=== PATIENT | male | born 1940 | race Caucasian/White ===

== ENCOUNTER 2017-06-03 20:16 | Emergency (ER) | payer MEDICARE, OTHER ==
[~2017-06-03] VITALS: Ht 175.3 cm; Wt 61.2 kg
[~2017-06-03 20:16] MED LIST: ASPI81CH PO; Aspirin EC81 MG PO; BISA5EC PO; CYAN1000 PO; Colace100 MG PO; EXELON1 EACH TD; FURO40 PO; HYDR1TAB94 PO; IRON SC; LEVCAR2510 PO; LEVCAR25ER PO; LISI20 PO; Metoprolol Tart25 MG PO; Niaspan1000 MG PO; Norco 10-325 T1 EACH PO; OMEG1CAP30; PANT40 PO; PHYSICIANS1000 MCG/1 IJ; POTCHL20ER PO; Pravachol40 MG PO; Sudogest60 MG PO; VICODIN 5-3001 EACH PO; VITAMIN B122500 MC1 PO
[2017-06-03 21:40] LABS: BASOPHILS ABSOLUTE AUTO 0.04 K/mm3 (0.00-0.23); BASOPHILS PERCENT AUTO 1 % (0-2); EOSINOPHILS ABSOLUTE AUTO 0.13 K/mm3 (0.00-0.68); EOSINOPHILS PERCENT AUTO 2 % (0-6); Hematocrit 36.9 % (37.0-53.0); Hemoglobin 12.2 g/dL (13.5-17.5); IMMATURE GRAN ABSOLUTE AUTO 0.02 K/mm3 (0.00-0.10); IMMATURE GRAN PERCENT AUTO 0 % (0-1); LYMPHOCYTES ABSOLUTE AUTO 3.06 K/mm3 (0.84-5.20); LYMPHOCYTES PERCENT AUTO 38 % (21-46); MONOCYTES PERCENT AUTO 8 % (4-13); Mean Corpuscular HGB 30.3 pg (26.0-34.0); Mean Corpuscular HGB Conc 33.1 g/dL (31.5-36.5); Mean Corpuscular Volume 92 fL (80-100); NEUTROPHILS PERCENT AUTO 52 % (41-73); RDW Coefficient Variation 12.1 % (11.7-14.2); RDW Standard Deviation 40.9 fL (35.1-46.3); Red Blood Cell Count 4.03 M/mm3 (4.30-5.90); White Blood Cell Count 8.05 K/mm3 (4.00-11.30)
[2017-06-03 21:54] LABS: Anion Gap 9 mmol/L (6-16); Blood Urea Nitrogen 24 mg/dL (8-24); Bun/Creatinine Ratio 23.1 (12.0-20.0); CO2, Blood 25 mmol/L (21-32); Calcium, Blood 8.3 mg/dL (8.5-10.1); Chloride, Blood 106 mmol/L (98-108); Creatinine, Blood 1.04 mg/dL (0.60-1.20); Glomerular Filtration Rate >60 (60-); Glucose, Blood 93 mg/dL (70-99); Potassium, Blood 3.9 mmol/L (3.5-5.5); Sodium, Blood 140 mmol/L (136-145)
[2017-06-03 22:16] LABS: Mean Platelet Volume 10.8 fL (9.1-12.4)
[2017-06-03 22:17] LABS: Platelet Count 152 K/mm3 (150-400)
[2017-10-12] MEDS ORDERED: POTCHL20ER PO (14:30)
[2017-10-19] MEDS ORDERED: Flagyl500 MG PO (14:31)
[2017-10-19] MEDS ORDERED: LOPE2C PO (14:31)
[2017-10-19] MEDS ORDERED: ASPI81CH PO (16:45)
[2017-10-31] MEDS ORDERED: ACET325 PO (12:11)
[2017-10-31] MEDS ORDERED: Carbidopa-Levo1 EAC1 PO ×2 (12:13→12:28)
[2017-10-31] MEDS ORDERED: Acidophilus La100 GM PO (12:14)
[2017-10-31] MEDS ORDERED: LISI20 PO (12:14)
[2017-10-31] MEDS ORDERED: VANC250 PO (12:15)
[2017-11-06] MEDS ORDERED: FINA5 PO (14:33)
[2017-11-06] MEDS ORDERED: ALBU90OI INH (14:34)
[2017-11-06] MEDS ORDERED: GABA100 PO (14:35)
[2017-11-06] MEDS ORDERED: HYDR1TAB94 PO (14:38)
[2017-11-06] MEDS ORDERED: LIDOCAINE PAIN1 EACH TOP (14:39)
[2017-11-06] MEDS ORDERED: MELA3 PO (14:44)
[2017-11-06] MEDS ORDERED: METH10 PO (14:47)
[2017-11-06] MEDS ORDERED: NICO21TP (14:49)
[2017-11-06] MEDS ORDERED: STRIVERDI RESPIM4 GM INH (14:51)
[2017-11-06] MEDS ORDERED: SIMV5 PO (14:52)
== END 2017-06-03 23:52 | disposition home or self-care (01) ==
LOC: ER 20:16
PROVIDERS: Emergency Medicine
DX: G20 Parkinson's disease (principal); F02.80 Dementia in other diseases classified elsewhere, unspecified severity, without behavioral disturbance, psychotic disturbance, mood disturbance, and anxiety; Z87.891 Personal history of nicotine dependence; Z79.82 Long term (current) use of aspirin; Z79.899 Other long term (current) drug therapy
CPT/HCPCS: 36415; 80048; 85025; 99283

== ENCOUNTER 2017-08-03 19:12 | Observation (INO) | payer MEDICARE, OTHER ==
[~2017-08-03] VITALS: Ht 177.8 cm; Wt 86.7 kg
[2017-08-03 21:50] LABS: BASOPHILS ABSOLUTE AUTO 0.04 K/mm3 (0.00-0.23); BASOPHILS PERCENT AUTO 0 % (0-2); EOSINOPHILS ABSOLUTE AUTO 0.17 K/mm3 (0.00-0.68); EOSINOPHILS PERCENT AUTO 2 % (0-6); Hematocrit 39.1 % (37.0-53.0); Hemoglobin 12.8 g/dL (13.5-17.5); IMMATURE GRAN ABSOLUTE AUTO 0.03 K/mm3 (0.00-0.10); IMMATURE GRAN PERCENT AUTO 0 % (0-1); LYMPHOCYTES ABSOLUTE AUTO 4.08 K/mm3 (0.84-5.20); LYMPHOCYTES PERCENT AUTO 46 % (21-46); MONOCYTES ABSOLUTE AUTO 0.57 K/mm3 (0.16-1.47); MONOCYTES PERCENT AUTO 6 % (4-13); Mean Corpuscular HGB 31.1 pg (26.0-34.0); Mean Corpuscular HGB Conc 32.7 g/dL (31.5-36.5); Mean Corpuscular Volume 95 fL (80-100); NEUTROPHILS ABSOLUTE AUTO 4.03 K/mm3 (1.96-9.15); NEUTROPHILS PERCENT AUTO 45 % (41-73); RDW Coefficient Variation 12.8 % (11.7-14.2); RDW Standard Deviation 44.7 fL (35.1-46.3); Red Blood Cell Count 4.11 M/mm3 (4.30-5.90); White Blood Cell Count 8.92 K/mm3 (4.00-11.30)
[2017-08-03 21:53] LABS: International Normalized Ratio 1.03; Prothrombin Time Results 10.7 Sec (9.7-11.5)
[2017-08-03 21:54] LABS: Anion Gap 8 mmol/L (6-16); Blood Urea Nitrogen 20 mg/dL (8-24); Bun/Creatinine Ratio 23.5 (12.0-20.0); CO2, Blood 24 mmol/L (21-32); Calcium, Blood 8.8 mg/dL (8.5-10.1); Chloride, Blood 112 mmol/L (98-108); Creatinine, Blood 0.85 mg/dL (0.60-1.20); Glomerular Filtration Rate >60 (60-); Glucose, Blood 99 mg/dL (70-99); Potassium, Blood 4.2 mmol/L (3.5-5.5); Sodium, Blood 144 mmol/L (136-145)
[2017-08-03 22:39] LABS: Mean Platelet Volume 11.3 fL (9.1-12.4); Platelet Count 124 K/mm3 (150-400)
[2017-08-04] MEDS ORDERED: HYDR1TAB94 PO (00:07)
== END 2017-08-04 15:30 | disposition home or self-care (01) ==
LOC: ER 19:12 → MEDS 19:13 → ENPENDDIS 08-04 13:01 → MEDS 08-04 15:30
PROVIDERS: Emergency Medicine
DX: S06.5X9A Traumatic subdural hemorrhage with loss of consciousness of unspecified duration, initial encounter (principal); G20 Parkinson's disease; F02.80 Dementia in other diseases classified elsewhere, unspecified severity, without behavioral disturbance, psychotic disturbance, mood disturbance, and anxiety; I25.10 Atherosclerotic heart disease of native coronary artery without angina pectoris; I25.2 Old myocardial infarction; E78.5 Hyperlipidemia, unspecified; K21.9 Gastro-esophageal reflux disease without esophagitis; I12.9 Hypertensive chronic kidney disease with stage 1 through stage 4 chronic kidney disease, or unspecified chronic kidney disease; N18.9 Chronic kidney disease, unspecified; Z79.82 Long term (current) use of aspirin; Z79.899 Other long term (current) drug therapy; W19.XXXA Unspecified fall, initial encounter; Y92.89 Other specified places as the place of occurrence of the external cause
CPT/HCPCS: 36415; 70450; 80048; 85025; 85610; 85730; 96374; 97161; 97530; 99285; G0378; G8978; G8979; J0360